=== PATIENT | female | born 1980 ===

== ENCOUNTER 2017-10-14 12:06 | Day surgery (SDC) | payer BC ==
[~2017-10-14 12:06] MED LIST: Buffered Lidocaine 0.9% SYRIN* 5 ML/SYR SYRINGE INTRADERM ONE; Dexamethasone TAB* 4 MG PO ONE; DiMENhydriNATE IV* 50 MG/ML VIAL IV PUSH PRN; Famotidine IV* 10 MG/ML 2 ML (20 mg) IV ONE; Morphine INJ* 2 MG/ML 1 ML SYRINGE (TWO MG - NEW SYRINGE VERSION) IV PRN; Naloxone* 0.4 MG/ML 1 ML VIAL IV PRN; Ondansetron INJ* 2 MG/ML VIAL ONE; PROCHLORPERAZINE INJ 5 MG/ML 2 ML VIAL IV PRN; fentaNYL* 50 MCG/ML 2 ML VIAL (100 MCG VIAL) IV PRN; oxyCODONE/Acetamin 5/325 MG* TAB PO PRN
[2017-10-14] MEDS ORDERED: fentaNYL* 50 MCG/ML 2 ML VIAL (100 MCG VIAL) ONE (12:10)
[2017-10-14] MEDS ORDERED: KETAMINE HCL* 50 MG/ML 10 ML VIAL ONE (12:10)
[2017-10-14] MEDS ORDERED: Midazolam* 1 MG/ML 5 ML VIAL (5 MG) ONE (12:11)
[2017-10-14] MEDS ORDERED: Famotidine IV* 10 MG/ML 2 ML (20 mg) ONE (12:22)
[2017-10-14] MEDS ORDERED: Ondansetron INJ* 2 MG/ML VIAL ONE (12:23)
[2017-10-14] MEDS ORDERED: Dexamethasone TAB* 4 MG ONE ×2 (12:23→12:24)
[2017-10-14] MEDS ORDERED: Bupivacaine 0.25% W/EPI* 10 ML SDV ONE ×2 (12:51→13:18)
[2017-10-14] MEDS ORDERED: Ketorolac INJ* 30 MG/ML 1 ML VIAL ONE (13:20)
[2017-10-14] MEDS ORDERED: Propofol* 10 MG/ML 20 ML BTL IV PUSH ONE (13:20)
[2017-10-14] MEDS ORDERED: Lidocaine 2% PF * 5 ML VIAL ONE (13:20)
[2017-10-14 14:52] VITALS: BP 152/84
--- NOTE | 2017-10-15 21:49 | OP ---
DATE OF OPERATION: 10/14/17 - [facility] DATE OF : 82 SURGEON: Vincenzo Singh MD DISPLAY COORDINATOR: AMPARO Rowan ANESTHESIOLOGIST: Dr. Duval. ANESTHESIA: Local MAC. PRE-OP DIAGNOSES: 1. Left carpal tunnel syndrome. 2. Left volar wrist ganglion, likely in Guyon's canal. POST-OP DIAGNOSES: 1. Left carpal tunnel syndrome. 2. Soft tissue fatty mass protruding from Guyon's canal. OPERATIVE PROCEDURE: 1. Left carpal tunnel release. 2. Excision of soft tissue fatty mass protruding from Guyon's canal together with release of Guyon's canal. INDICATIONS: Eliz is 37 years old. She is having numbness and tingling throughout the hand. She has a protruding soft tissue mass on the volar aspect of the wrist that becomes prominent with extension of the wrist coupled with any pressure applied on Guyon's canal really makes the mass protrude. I told her I thought it was probably a ganglion coming out from Guyon's canal. We decided to proceed with carpal tunnel release and excision of the mass. FINDINGS: See above and below. ESTIMATED BLOOD LOSS: 2 mL. COMPLICATIONS: None. DESCRIPTION OF PROCEDURE: Eliz was seen in the preoperative holding area. The correct site, side, and procedure were identified. We came back to the operating room where the arm was prepped and draped in the usual fashion. After she got some anesthesia, I infiltrated the operative area with 0.25% Marcaine with epinephrine. We then had a formal time-out. I began by making a longitudinal incision in the typical location for an open carpal tunnel release. This was brought back across the wrist flexion crease in Kendra type fashion ulnarly. Dissection was carried down and the transverse carpal ligament was released just off the radial aspect of the hook of the hamate. Release was carried out from distal to proximal to a level of several centimeters proximal to the wrist flexion crease. I then turned my attention to Guyon's canal. There was a large fatty collection protruding from the Guyon' s canal. When I would put some pressure on the canal, the mass would protrude out. I went ahead and unroofed the Guyon's canal and decompressed the ulnar nerve in its entirety. I went ahead and excised the fatty mass as well. Once I had fully debrided the area and everything was nicely decompressed and the fatty mass was excised, we irrigated out the wound. The skin was closed with 4-0 nylon suture. The wound was dressed with soft dressings. Tourniquet was deflated, which had been used at 250 mmHg throughout the case. She was then woken up and taken to the recovery room in stable condition. [id number]/[facility] #: [id number] MOISES
== END 2017-10-14 15:00 | disposition home or self-care (01) ==
LOC: OR 12:06
PROVIDERS: ATTEND Orthopaedic Surgery Hand Surgery
DX: G56.02 Carpal tunnel syndrome, left upper limb (principal); R22.32 Localized swelling, mass and lump, left upper limb; I10 Essential (primary) hypertension; E66.9 Obesity, unspecified
CPT/HCPCS: J1885; J2250; J2405; J2704; J3010; J8540